=== PATIENT | female | born 1990 | race Caucasian/White ===

== ENCOUNTER → 2020-11-11 08:31 | Outpatient (BNVA) | payer OTHER, SELFPAY | PROVIDERS: PCP Internal Medicine; Visit Provider Advanced Practice Midwife | DX: Z32.01 Encounter for pregnancy test, result positive (principal) | CPT/HCPCS: 81025 ==

== ENCOUNTER 2022-04-07 11:31 | Outpatient (REF) | payer OTHER, SELFPAY ==
[2022-04-08 04:36] LABS: CT PCR NOT DETECTED (Not Detect.); NG PCR NOT DETECTED (Not Detect.)
[2022-04-08 12:27] LABS: BV Int Neg Control Negative (Negative); BV Int Pos Control Positive (Positive)
[2022-04-21 05:48] LABS: HPV mRNA E6/E7 rflx Not Detected (Not Detected)
== END 2022-04-07 11:32 | disposition home or self-care (01) ==
LOC: HO.LNP 11:31
PROVIDERS: Visit Provider Advanced Practice Midwife
DX: Z01.419 Encounter for gynecological examination (general) (routine) without abnormal findings (principal); Z11.3 Encounter for screening for infections with a predominantly sexual mode of transmission
CPT/HCPCS: 87480; 87491; 87510; 87591; 87624; 87660; 88142

== ENCOUNTER 2023-04-13 09:23 | Outpatient (AMB) | payer OTHER, SELFPAY ==
[2023-04-13 09:44] VITALS: BP 132/82; BMI 21.2
--- NOTE | 2023-04-13 09:44 | MHC.OFFVIS ---
Intake Vital Signs 04/13/23 09:44 Height 5 ft 2 in Weight 116 lb BMI 21.2 BP 132/82 Intake Visit Reasons: Annual Intake Note: Std check and lab Graduate Research Assistant Required: Yes Graduate Research Assistant Language: Irish Information Interpreted: non-clinical & clinical Supervisor Color Paste Mixing: Supervisor Color Paste Mixing Present (Marie) Allergies No Known Allergies Allergy (Verified 04/13/23 09:47) Medication List - Last Reconciled 04/13/23 by Evonne Brock CNM PNV,calcium [id number] acid 27 mg iron- 1 mg ( Vitamins Plus Low Iron) 1 tab PO DAILY Is last menstrual period known: Yes Last menstrual period: 04/05/23 Post menopausal: No HPI Annual HPI Details 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 She has been going through separation with the father the baby in the last 2 months because he cheated on her. Right now she has help from her mother who is visiting from [place] but she needs to return to her family there. 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 She is still nursing her baby who is [id number] but she is trying to wean him off and delay requests for nursing gradually little by little. She is interested in full STD tests because of her partner cheating on her she is not sexually active now and does not intend to be I did review condoms for protection and she is aware and would take care of herself. She is not interested in any other method at this time. 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 Sexual orientation: Straight/Heterosexual Gender identity: Female Female Reproductive History Menstrual Age of Menarche: 11 Duration of menses: 6-7 days Date of last menstrual period: 04/05/23 control method: none Total pregnancies: 1 Full term: 1 Number of Living Children: 1 Date of last pap smear: 04/07/22 (negative) Physical Exam Vital Signs: Last Vital Signs BP 132/82 04/13/23 09:44 BMI result Body Mass Index 21.2 Const General: healthy appearing, comfortable, no acute distress, well developed and alert Nutritional Appearance: average body habitus Orientation/consciousness: patient oriented x3 Limitations: no limitations HEENT Head: Yes normocephalic Neck Neck: Yes normal visual inspection Thyroid: Thyroid normal Chest Other: Breasts soft nipples everted it in very good condition. Chest palpation & inspection: normal inspection of the chest Breast/axilla inspection: normal inspection of the breasts and normal inspection of the axillae Breast/axilla palpation: normal palpation of the breasts and normal palpation of the axillae Resp Effort & Inspection: normal respiratory effort GI Inspection: Yes normal to inspection, No Abdominal wall edema and No distended Palpation (GI): Soft to palpation and nontender Other: Vagina pink and moist clear healthy appearing mucus cervix nulliparous uterus is small retroverted mobile nontender adnexa mobile nontender good tone with Kegel. General: Yes bladder normal to palpation External Female Exam: normal external appearance and normal appearance of the urethra Speculum Exam - Vagina: normal appearance of the vagina, normal palpation and normal vaginal discharge Speculum Exam - Cervix: normal appearance of the cervix, normal palpation and nontender Bimanual exam- vagina & uterus: normal bimanual exam, normal palpation, uterine size normal, bladder normal to palpation, consistency normal, normal palpation, uterine mobility normal, uterine shape normal, No Cervical tenderness present, non-tender and no cervical motion tenderness Bimanual Exam- Adnexa, other: normal adnexae, no masses, normal and No adnexal tenderness Neuro General: patient oriented x3 Assessment & Plan Assessment & Plan (1) Lactating mother: Code(s): Z39.1 - Encounter for care and examination of lactating mother (2) Hx of section: Code(s): Z98.891 - History of uterine scar from previous surgery (3) control counseling: Code(s): Z30.09 - Encounter for other general counseling and advice on contraception (4) Screen for sexually transmitted diseases: Code(s): Z11.3 - Encounter for screening for infections with a predominantly sexual mode of transmission (5) Cervical cancer screening: Comment: 04/07/2022 Pap is negative with negative HPV. Code(s): Z12.4 - Encounter for screening for malignant neoplasm of cervix (6) Well woman exam with routine gynecological exam: Code(s): Z01.419 - Encounter for gynecological examination (general) (routine) without abnormal findings Plan -----Discussed in this visit the following: healthy balanced diet, regular and consistent exercise, getting recommended health screens, doing the best she can for her particular health concerns, kegel exercises, pap smear screening and followup recommendations, mammography screening and SBE, normal changes in cycles in her life stage--- .----I reviewed available options for Control Methods and their associated side effect profiles. In particular, we discussed the method most of interest to her. -abstinence and if need be condoms. For now she is planning to abstain and not be with anybody her focus is caring for her baby and working and juggling things. Testing ordered for blood work for HIV hep B hep C and syphilis. She is planning on going to the lab now. She is not on the portal yet but will get information at the front end engineer and if she is not yet on the portal she can call for the results on Sunday. She is eating well and taking good care of herself. Orders: Orders Hepatitis B Surface Antigen Today Z01.419 - Encounter for gynecological examination (general) (routine) without abnormal findings, Z11.3 - Encounter for screening for infections with a predominantly sexual mode of transmission, Z12.4 - Encounter for screening for malignant neoplasm of cervix, Z30.09 - Encounter for other general counseling and advice on contraception, Z39.1 - Encounter for care and examination of lactating mother, Z98.891 - History of uterine scar from previous surgery Hepatitis C Antibody Today Z01.419 - Encounter for gynecological examination (general) (routine) without abnormal findings, Z11.3 - Encounter for screening for infections with a predominantly sexual mode of transmission, Z12.4 - Encounter for screening for malignant neoplasm of cervix, Z30.09 - Encounter for other general counseling and advice on contraception, Z39.1 - Encounter for care and examination of lactating mother, Z98.891 - History of uterine scar from previous surgery HIV Ab/Ag Today Z01.419 - Encounter for gynecological examination (general) (routine) without abnormal findings, Z11.3 - Encounter for screening for infections with a predominantly sexual mode of transmission, Z12.4 - Encounter for screening for malignant neoplasm of cervix, Z30.09 - Encounter for other general counseling and advice on contraception, Z39.1 - Encounter for care and examination of lactating mother, Z98.891 - History of uterine scar from previous surgery Syphilis Screen Today Z01.419 - Encounter for gynecological examination (general) (routine) without abnormal findings, Z11.3 - Encounter for screening for infections with a predominantly sexual mode of transmission, Z12.4 - Encounter for screening for malignant neoplasm of cervix, Z30.09 - Encounter for other general counseling and advice on contraception, Z39.1 - Encounter for care and examination of lactating mother, Z98.891 - History of uterine scar from previous surgery Bacterial Vaginosis Panel Today Z11.3 - Encounter for screening for infections with a predominantly sexual mode of transmission CT NG by PCR Today Z11.3 - Encounter for screening for infections with a predominantly sexual mode of transmission Coding Level of Care Code Est Pt Prev Care [id number]) Diagnoses Lactating mother Z39.1 Hx of section Z98.891 control counseling Z30.09 Screen for sexually transmitted diseases Z11.3 Cervical cancer screening Z12.4 Well woman exam with routine gynecological exam Z01.419
== END 2023-04-13 10:19 | disposition home or self-care (01) ==
PROVIDERS: Visit Provider Advanced Practice Midwife
DX: Z01.419 Encounter for gynecological examination (general) (routine) without abnormal findings (principal); Z30.09 Encounter for other general counseling and advice on contraception
CPT/HCPCS: 99395

== ENCOUNTER 2023-04-13 09:23 | Outpatient (REF) | payer OTHER, SELFPAY ==
[2023-04-14 10:32] LABS: CT PCR NOT DETECTED (Not Detect.); NG PCR NOT DETECTED (Not Detect.)
[2023-04-15 11:45] LABS: BV Int Neg Control Negative (Negative); BV Int Pos Control Positive (Positive)
== END 2023-04-13 09:24 | disposition home or self-care (01) ==
LOC: HO.LNP 09:23
PROVIDERS: Visit Provider Advanced Practice Midwife
DX: Z30.09 Encounter for other general counseling and advice on contraception (principal); Z20.2 Contact with and (suspected) exposure to infections with a predominantly sexual mode of transmission; Z98.891 History of uterine scar from previous surgery
CPT/HCPCS: 0353U; 87480; 87510; 87660

== ENCOUNTER 2023-04-13 10:28 | Outpatient (REF) | payer OTHER, SELFPAY ==
[2023-04-13 12:21] LABS: Syphilis Screen Nonreactive (Nonreactive)
[2023-04-13 12:22] LABS: HBsAGNum1 0.64 S/CO (0.00-0.99); HIV AB/AG Nonreactive (Nonreactive); HIV Num 1 0.05 S/CO (0.00-0.99); Hepatitis B Surface Antigen Negative (Negative); ~HepC Num1 0.24 S/CO (0.00-0.79); ~Hepatitis C Antibody Nonreactive (Nonreactive)
== END 2023-04-13 10:29 | disposition home or self-care (01) ==
LOC: HO.LAB 10:28
PROVIDERS: Visit Provider Advanced Practice Midwife
DX: Z30.09 Encounter for other general counseling and advice on contraception (principal); Z20.2 Contact with and (suspected) exposure to infections with a predominantly sexual mode of transmission; Z98.891 History of uterine scar from previous surgery
CPT/HCPCS: 36415; 86780; 86803; 87340; 87389

== ENCOUNTER 2024-06-02 | Outpatient (REF) | payer OTHER, SELFPAY ==
[2024-06-03 01:41] LABS: CT PCR NOT DETECTED (Not Detect.); NG PCR NOT DETECTED (Not Detect.)
[2024-06-03 09:38] LABS: Bacterial Vaginosis PCR NEGATIVE (Negative); Candida Group PCR NOT DETECTED (Not Detect); Candida glab krusei PCR NOT DETECTED (Not Detect); Trichomonas vaginalis PCR NOT DETECTED (Not Detect)
== END 2024-06-02 00:01 | disposition home or self-care (01) ==
LOC: HO.LNP
PROVIDERS: Visit Provider Advanced Practice Midwife
DX: N89.8 Other specified noninflammatory disorders of vagina (principal)
CPT/HCPCS: 81515; 87491; 87591

== ENCOUNTER 2024-06-02 09:41 | Outpatient (REF) | payer OTHER, SELFPAY | END 2024-06-02 09:42 | disposition home or self-care (01) | LOC: HO.LAB 09:41 | PROVIDERS: PCP Internal Medicine; Visit Provider Advanced Practice Midwife | DX: Z01.419 Encounter for gynecological examination (general) (routine) without abnormal findings (principal); Z98.891 History of uterine scar from previous surgery | CPT/HCPCS: 99395; 99459 ==